=== PATIENT | male | born 1995 | race Caucasian/White ===

== ENCOUNTER 2020-12-28 17:02 | Emergency (ER) | payer SELFPAY ==
[2020-12-28 17:21] VITALS: BP 114/58; PULSE 63; RESP 17; TEMP 36.8; O2SAT 98
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
[2020-12-28 18:16] VITALS: BP 133/69; PULSE 60; RESP 14; TEMP 36.3; O2SAT 99
--- NOTE | 2020-12-28 18:56 | PC.NURSE ---
Positive pulse and sensation before and after sling application.
[2020-12-28 19:04] VITALS: BP 127/67; PULSE 58; RESP 16; TEMP 36.8; O2SAT 100
--- NOTE | 2021-01-08 09:10 | DCPLANNER ---
late entry - telephonic case manager had message to schedule a follow up appointment for patient with ortho. broiler manager called the ortho clinic, spoke with Magdalena, gave clinic patients information. broiler manager was told that patients information would be printed and reviewed. Clinic will call patient with appointment information.
--- NOTE | 2021-01-10 10:36 | DCPLANNER ---
Patient has a follow up appointment scheduled for , January 18, 2021 at 2:[address] Aguirre at [facility]. Clinic will call patient with appointment information.
--- NOTE | 2021-01-19 08:58 | DCPLANNER ---
Patient had a follow up appointment scheduled for 01.18.21 with ortho - patient did not attend appointment.
== END 2020-12-28 19:06 | disposition home or self-care (01) ==
PROVIDERS: Emergency Provider Physician Assistant
DX: M89.511 Osteolysis, right shoulder (principal); M54.9 Dorsalgia, unspecified; S43.101A Unspecified dislocation of right acromioclavicular joint, initial encounter; V50.6XXA Passenger in pick-up truck or van injured in collision with pedestrian or animal in traffic accident, initial encounter
CPT/HCPCS: 72100; 73030; 99282